=== PATIENT | female | born 1965 | race African-American/Black ===

== ENCOUNTER 2018-09-29 12:43 | Emergency (ER) | payer OTHER ==
[~2018-09-29] VITALS: Ht 162.6 cm; Wt 78.9 kg
--- NOTE | 2018-09-29 14:16 | Diagnostic Imaging Report ---
Exam: Left knee radiographs - 4 four views History: Swelling, pain with knee extension/flexion Comparison: None. Findings: No evidence of acute fracture, malalignment, or soft tissue abnormality. No evidence of joint effusion or erosion. Joint spaces are preserved. Mild deformity of the proximal fibula could reflect sequela of prior trauma. Impression: No acute radiographic abnormality. Signed by: Dr. Haylee Guidry MD on 09/29/2018 2:12 PM
--- NOTE | 2018-09-29 14:55 | NUR ---
PT TO VASCULAR DEPT TO HAVE VENOUS DOPPLER STUDY DONE.
[2018-09-29 17:31] VITALS: BP 131/80
== END 2018-09-29 17:35 | disposition home or self-care (01) ==
LOC: ER 12:43
DX: M25.562 Pain in left knee (principal); M79.662 Pain in left lower leg; M79.89 Other specified soft tissue disorders; I10 Essential (primary) hypertension; J45.909 Unspecified asthma, uncomplicated; Z87.11 Personal history of peptic ulcer disease
CPT/HCPCS: 93971; 99284

== ENCOUNTER → 2018-11-21 | Day surgery (SDC) | payer OTHER ==
--- NOTE | 2018-11-19 11:45 | Diagnostic Imaging Report ---
EXAMINATION: CHEST 2 VIEWS INDICATION: Pre-admit. COMPARISON: None FINDINGS: TUBES and LINES: None. LUNGS: Lungs are moderately inflated. Lungs are clear. There is no evidence of pneumonia or pulmonary edema. PLEURA: No pleural effusion or pneumothorax. HEART AND MEDIASTINUM: The cardiomediastinal silhouette is unremarkable. BONES AND SOFT TISSUES: No acute osseous lesion. Soft tissues are unremarkable. UPPER ABDOMEN: No free air under the diaphragm. Surgical clips project over the right upper quadrant. IMPRESSION: No acute radiographic abnormality. Signed by: Dr. Haylee Guidry MD on 11/19/2018 11:42 AM
[2018-11-19 12:05] LABS: BASOPHILS % 0.4 % (0.0-1.0); EOSINOPHILS # (AUTO) 0.1 (0.0-0.4); EOSINOPHILS % 1.5 % (0.0-6.0); HEMATOCRIT 40.4 % (34.2-44.1); HEMOGLOBIN 12.8 g/dL (12.0-16.0); LYMPHOCYTES % 26.3 % (18.0-39.1); MEAN CORPUSCULAR HEMOGLOBIN 26.9 pg (28-32); MEAN CORPUSCULAR HGB CONC 31.7 g/dL (31-35); MEAN CORPUSCULAR VOLUME 84.9 fL (81-99); MONOCYTES # (AUTO) 0.6 (0.2-0.8); MONOCYTES % 7.3 % (4.4-11.3); NEUTROPHILS # (AUTO) 4.8 (2.1-6.9); PLATELET COUNT 260 x10e3/uL (140-360); RED BLOOD COUNT 4.76 x10e6/uL (3.6-5.1); RED CELL DISTRIBUTION WIDTH 14.8 % (11.7-14.4)
[~2018-11-21] MED LIST: ALBUTEROL0.63 MG/3 INH; AMLODIPINE BESY10 MG PO; DEXAMETHASONE SOD PHOS INJ 4 MG/ML VIAL ONE; FENTANYL CITRATE/PF 100MCG/2 ML INJ ONE; GENTAMICIN SULFATE 40 MG/ML 2 ML VIAL ONE; IOPAMIDOL 610MG/1ML 300 MG/ML VIAL IV ONE; LIDOCAINE HCL 2% LOCAL INJ 5 ML SDV VIAL INJ ONE; MIDAZOLAM HCL 2 MG/2 ML VIAL ONE; ONDANSETRON HCL INJ 2MG/ML 2ML 2 MG/ML VIAL ONE; PROPOFOL IV EMULSION 10 MG/ML 20 ML VIAL ONE; SEVOFLURANE INHAL SOLN 250 ML PEN BTL ONE
--- OUTSIDE RECORDS SUMMARY | 2018-11-21 05:45 | XMS REPORT ---
Author Author [facility] Address Unknown Phone Unavailable Care Team Providers Care Day Care Home Provider Name Role Phone HUYEN LUTHER Unavailable Unavailable Enio MONDRAGON Unavailable Unavailable Problems This patient has no known problems. Allergies, Adverse Reactions, Alerts This patient has no known allergies or adverse reactions. Medications This patient has no known medications. Results Test Description Test Time Test Comments Text Results Atomic Results Result Comments CHEST 2 VIEWS 2018-11-19 11:41:00 [place] [address] Patient Name: AILYN GARCÍA MR #: [id number] : 1965 Age/Sex: 52/F Req #: [id number] Adm Physician: Ordered by: HUYEN LUTHER MD Report #: [id number] Location: OR Room/Bed: Procedure: [id number] DX/CHEST 2 VIEWS Exam Date: Exam Time: REPORT STATUS: Signed EXAMINATION: CHEST 2 VIEWS INDICATION: Pre-admit. COMPARISON: None FINDINGS: TUBES and LINES: None. LUNGS: Lungs are moderately inflated. Lungs are clear. There is no evidence of pneumonia or pulmonary edema. PLEURA: No pleural effusion or pneumothorax. HEART AND MEDIASTINUM: The cardiomediastinal silhouette is unremarkable. BONES AND SOFT TISSUES: No acute osseous lesion. Soft tissues are unremarkable. UPPER ABDOMEN: No free air under the diaphragm. Surgical clips project over the right upper quadrant. IMPRESSION: No acute radiographic abnormality. Signed by: Dr. Nader Gama MD on 11/19/2018 11:42 AM Dictated By: NADER GAMA MD 114 Transcribed By: NIRAV on 11/19/18 114 COPY TO: HUYEN LUTHER MD KNEE LEFT THREE VIEWS 2018-09-29 14:10:00 [place] [address] Patient Name: AILYN GARCÍA MR #: [id number] : 1965 Age/Sex: 52/F Req #: [id number] Adm Physician: Ordered by: SHALONDA DAVIDSON NP Report #: [id number] Location: ER Room/Bed: Procedure: [id number] DX/KNEE LEFT THREE VIEWS Exam Date: 09/29/18 Exam Time: 1320 REPORT STATUS: Signed Exam: Left knee radiographs - 4 four views History: Swelling, pain with knee extension/flexion Comparison: None. Findings: No evidence of acute fracture, malalignment, or soft tissue abnormality. No evidence of joint effusion or erosion. Joint spaces are preserved. Mild deformity of the proximal fibula could reflect sequela of prior trauma. Impression: No acute radiographic abnormality. Signed by: Dr. Nader Gama MD on 09/29/2018 2:12 PM Dictated By: NADER GAMA MD 11 Transcribed By: NIRAV on 09/29/18 141 COPY TO: SHALONDA DAVIDSON NP
[2018-11-21 09:45] VITALS: BP 115/71
--- NOTE | 2018-11-21 23:33 | Operative Report ---
DATE OF PROCEDURE: 11/21/2018 SURGEON: Zenon Plasencia MD PREOPERATIVE DIAGNOSES: 1. Recurrent UTIs. 2. Microscopic hematuria. 3. Clinical symptoms of interstitial cystitis without gross hematuria. POSTOPERATIVE DIAGNOSES: 1. Recurrent UTIs 2. Microscopic hematuria. 3. Clinical symptoms of interstitial cystitis without gross hematuria. PROCEDURES: 1. Cystourethroscopy with hydrodistention (entirely separate procedure for the diagnosis of clinical signs and symptoms of interstitial cystitis). 2. Cystourethroscopy with left ureteric catheterization and left retrograde pyelogram (entirely separate procedure for the diagnosis of clinical signs and symptoms of microscopic hematuria.) 3. Cystourethroscopy with left ureteric catheterization and right retrograde pyelogram (entirely separate procedure for the diagnosis of clinical signs and symptoms of microscopic hematuria.) 4. Supervision of fluoroscopy. 5. Interpretation of retrograde pyelography. ANESTHESIA: General. ESTIMATED BLOOD LOSS: Minimal. COMPLICATIONS: None. INDICATIONS FOR PROCEDURE: Ms. Castillo is a very pleasant female patient with history of multiple urinary tract infections, microscopic hematuria, and clinical symptoms of interstitial cystitis. She and I had a long discussion about alternatives, risks, and benefits including doing nothing, cystoscopy, hydrodistention, IVP retrograde pyelograms. She voiced understanding of the options, alternatives, risks and benefits and she elected to proceed with retrograde pyelograms to avoid the nephrotoxic risk of dye. PROCEDURE IN DETAIL: After informed consent was obtained, the patient was taken to the operative suite. She was placed supine on the operating table. She underwent general anesthesia by the Anesthesia Service. She was placed in the dorsal lithotomy position, sterilely prepped and draped in a standard fashion for cystoscopy. A 21-Dominican cystoscope was inserted per urethra. There was squamous metaplasia noted on the trigone . Grade 2 cystocele. Good urethral support. Panendoscopy of the bladder revealed no tumors or stones. Both ureteral orifices were in normal anatomic location and position and were seen to efflux clear urine. Hydrodostension revealed capacity 800cc. No glomerulations or Hunner's ulcers. Bilateral retrograde pyelograms were performed and were normal. bladder was drained. The patient was awakened from anesthesia and transported to the recovery room in excellent condition. Supervision of fluoroscopy, interpretation of retrograde pyelography: I was present for the entire procedure and I supervised the use of fluoroscopy as no radiologist was present. Attention was turned towards the left and right ureters, which were catheterized with a 5-Dominican open-ended catheter. . No evidence of filling defects. No evidence of hydronephrosis. IMPRESSION: Normal retrograde pyelogram. MD BHAVANI Wetzel/MODL /[id number] MTDFlo
== END | disposition home or self-care (01) ==
LOC: OR 05:42
PROVIDERS: ATTEND Urology
DX: N39.0 Urinary tract infection, site not specified (principal); N81.10 Cystocele, unspecified; N32.89 Other specified disorders of bladder; N39.46 Mixed incontinence; J44.9 Chronic obstructive pulmonary disease, unspecified; E11.9 Type 2 diabetes mellitus without complications; I10 Essential (primary) hypertension; F17.210 Nicotine dependence, cigarettes, uncomplicated; Z01.810 Encounter for preprocedural cardiovascular examination; Z01.812 Encounter for preprocedural laboratory examination; Z01.818 Encounter for other preprocedural examination; Z88.6 Allergy status to analgesic agent; Z88.0 Allergy status to penicillin; Z88.8 Allergy status to other drugs, medicaments and biological substances
CPT/HCPCS: 36415; 52005; 71046; 74420; 85025; 93005; C1758; J1100; J1580; J2001; J2250; J2405; J2704; Q9967